=== PATIENT | male | born 1955 | race African-American/Black ===

== ENCOUNTER 2019-04-05 22:49 | Emergency (ER) | payer OTHER ==
[~2019-04-05] VITALS: Ht 188 cm; Wt 79.4 kg
[~2019-04-05 22:49] MED LIST: CYCLOBENZAPRINE10 MG ORAL; IBUPROFEN600 MG ORAL
[2019-04-05 23:30] VITALS: BP 141/72
--- NOTE | 2019-04-05 23:30 | NUR ---
ED Nurse Note: pt walked in c/o abscess on left buttock area with tenderness, pain, redness and pus with foul odor, pt states he has been having it for a while. will cont monitor.
--- NOTE | 2019-04-06 00:14 | Emergency Room Report ---
History of Present Illness General Chief Complaint: Skin Rash/Abscess Present Illness HPI Patient is a 63-year-old male brought in by EMS after increased self after increased skin rash to his buttock. Patient reports having onset of symptoms approximate 1 week ago. He had prior history of chronic wound to his lower buttock. He denies any fever. He had prior history of pituitary adenoma resection. He noticed to become increasingly swollen and painful. Allergies: Coded Allergies: Dairy (Verified Allergy, Mild, 03/01/15) Nursing Documentation-[facility] Hx Neurological Problems: Yes - 3 time brain surgery Physical Exam Vital Signs Date Time Temp Pulse Resp B/P (MAP) Pulse Ox O2 Delivery O2 Flow Rate FiO2 04/05/19 23:01 98.8 60 18 141/72 (95) 99 Room Air Sp02 EP Interpretation: reviewed, normal General Appearance: normal inspection, well appearing, no apparent distress, alert Head: atraumatic ENT: normal ENT inspection, hearing grossly normal, normal voice Neck: normal inspection, full range of motion, supple, no bony tend Respiratory: normal inspection, lungs clear, normal breath sounds, no respiratory distress, no retraction, no wheezing Cardiovascular #1: regular rate, rhythm, no edema Gastrointestinal: normal inspection, normal bowel sounds, non tender, soft, no guarding, no hernia Genitourinary: no CVA tenderness Musculoskeletal: normal inspection, back normal, normal range of motion Neurologic: alert, responsive, speech normal, normal inspection Psychiatric: normal inspection, judgement/insight normal, mood/affect normal Skin: other - induration to left buttock and erythema Medical Decision Making Diagnostic Impression: Primary Impression: Skin infection ER Course Patient present for skin rash. Differential diagnosis include was not limited to abscess, tumor, furuncle among others. Because of complexity of patient's case laboratory tests and imaging studies were ordered.Patient's laboratory testing showed a normal white blood count. CT imaging of the abdomen pelvis showed some evidence of colitis as well as lesion skin lesion. See radiology report for full details Patient was advised to follow-up with his primary care physician for further evaluation of colitis. He does not appear to have any current GI symptoms. Patient was also advised to follow-up as an outpatient with a general surgeon for further evaluation and treatment of the abscess. Does not appear to be significant soft tissue erythema at this time and patient will be given oral antibiotics. He was advised to return if worse.Patient was advised to have the wound rechecked in 2 days. He was advised to return to the emergency department if unable to see surgeon Labs Test 04/06/19 00:30 White Blood Count 8.4 K/UL (4.8-10.8) Red Blood Count 4.22 M/UL (4.70-6.10) Hemoglobin 12.4 G/DL (14.2-18.0) Hematocrit 37.6 % (42.0-52.0) Mean Corpuscular Volume 89 FL (80-99) Mean Corpuscular Hemoglobin 29.4 PG (27.0-31.0) Mean Corpuscular Hemoglobin Concent 32.9 G/DL (32.0-36.0) Red Cell Distribution Width 11.7 % (11.6-14.8) Platelet Count 290 K/UL (150-450) Mean Platelet Volume 5.6 FL (6.5-10.1) Neutrophils (%) (Auto) 55.6 % (45.0-75.0) Lymphocytes (%) (Auto) 34.0 % (20.0-45.0) Monocytes (%) (Auto) 7.4 % (1.0-10.0) Eosinophils (%) (Auto) 2.0 % (0.0-3.0) Basophils (%) (Auto) 0.9 % (0.0-2.0) Sodium Level 140 MMOL/L (136-145) Potassium Level 3.5 MMOL/L (3.5-5.1) Chloride Level 103 MMOL/L (98-107) Carbon Dioxide Level 32 MMOL/L (21-32) Anion Gap 5 mmol/L (5-15) Blood Urea Nitrogen 19 mg/dL (7-18) Creatinine 1.0 MG/DL (0.55-1.30) Estimat Glomerular Filtration Rate > 60 mL/min (>60) Glucose Level 108 MG/DL (74-106) Calcium Level 8.8 MG/DL (8.5-10.1) Total Bilirubin 0.5 MG/DL (0.2-1.0) Aspartate Amino Transf (AST/SGOT) 26 U/L (15-37) Alanine Aminotransferase (ALT/SGPT) 28 U/L (12-78) Alkaline Phosphatase 56 U/L (46-116) Total Protein 8.8 G/DL (6.4-8.2) Albumin 4.0 G/DL (3.4-5.0) Globulin 4.8 g/dL Albumin/Globulin Ratio 0.8 (1.0-2.7) Last Vital Signs Date Time Temp Pulse Resp B/P (MAP) Pulse Ox O2 Delivery O2 Flow Rate FiO2 04/05/19 23:01 98.8 60 18 141/72 (95) 99 Room Air Status: improved Disposition: HOME, SELF-CARE Condition: Stable Scripts Cephalexin* (KEFLEX*) 500 Mg Capsule 500 MG ORAL EVERY 6 HOURS, #28 CAP Prov: Jose Moseley MD 04/06/19 Trimethoprim/Sulfamethoxazole 160/800* (BACTRIM DS TABLET*) 1 Each Tablet 1 TAB ORAL Q12H, #14 TAB 0 Refills Prov: Jose Moseley MD 04/06/19 Referrals: NOT CHOSEN ANGLE/,REFERRING (PCP) Jose Moseley MD Apr 06, 2019 00:14
[2019-04-06] MEDS ORDERED: Piperacillin/Tazobactam 3.375 GM in NS 110 ML IVPB ONE (00:15)
[2019-04-06 00:55] LABS: BASOPHILS % (AUTO) 0.9 % (0.0-2.0); HEMATOCRIT 37.6 % (42.0-52.0); HEMOGLOBIN 12.4 G/DL (14.2-18.0); MEAN CORPUSCULAR VOLUME 89 FL (80-99); MONOCYTES % (AUTO) 7.4 % (1.0-10.0); NEUTROPHILS % (AUTO) 55.6 % (45.0-75.0); PLATELET COUNT 290 K/UL (150-450); RED BLOOD COUNT 4.22 M/UL (4.70-6.10); RED CELL DISTRIBUTION WIDTH 11.7 % (11.6-14.8); WHITE BLOOD COUNT 8.4 K/UL (4.8-10.8)
[2019-04-06 01:09] LABS: ANION GAP 5 mmol/L (5-15); BLOOD UREA NITROGEN 19 mg/dL (7-18); CALCIUM 8.8 MG/DL (8.5-10.1); CARBON DIOXIDE 32 MMOL/L (21-32); CHLORIDE 103 MMOL/L (98-107); POTASSIUM 3.5 MMOL/L (3.5-5.1); SODIUM 140 MMOL/L (136-145)
[2019-04-06 01:14] LABS: ALANINE AMINOTRANSFERASE 28 U/L (12-78); ALBUMIN/GLOBULIN RATIO 0.8 (1.0-2.7); ALKALINE PHOSPHATASE 56 U/L (46-116); ASPARTATE AMINO TRANSFERASE 26 U/L (15-37); BILIRUBIN,TOTAL 0.5 MG/DL (0.2-1.0)
--- NOTE | 2019-04-06 02:22 | NUR ---
ED Nurse Note: contacted lab regarding cancellation for wound culture and spoke with alo.
--- NOTE | 2019-04-06 04:00 | Diagnostic Imaging Report ---
Indication: Abscess on buttocks Technique: Spiral acquisitions obtained through the abdomen and pelvis. No oral contrast utilized, per emergency room physician request No IV contrast utilized, per referring physician request. Multiplanar reconstructions were generated. Total dose length product 1224 mGycm. CTDIvol(s) 18 mGy. Dose reduction achieved using automated exposure control Comparison: None Findings: Area of abnormal attenuation is seen just deep to the skin extending into the subcutaneous fat in the left buttock region this measures 2.3 cm transverse by 1.8 cm deep. This demonstrates fluid attenuation. There is thickening of the adjacent skin. The appendix is normal. No small bowel distention. No free or loculated intraperitoneal gas or fluid is evident. The distal esophagus, stomach, duodenum are unremarkable. Lack of IV contrast limits assessment of solid organs. The liver is grossly unremarkable. There is suggestion of. Equivocal cholelithiasis edema of the gallbladder wall. There is questionably a 2.5 x 1.2 cm gallstone in the gallbladder neck. No biliary ductal dilatation. The pancreas, spleen, adrenals, kidneys are unremarkable. No renal or ureteral calculi, hydronephrosis, or hydroureter demonstrated. The bladder is unremarkable. No pelvic mass or adenopathy. The included lung bases demonstrate numerous small cystic spaces in both lungs. The bones demonstrate minimal degenerative spondylosis changes Impression: Subcutaneous of the left buttock region demonstrate fluid attenuation. This could represent a small abscess or could represent a process such as a sebaceous cyst which may for not be infected. Appearance nonspecific particularly in the absence of IV contrast. Correlate with clinical findings. Sonography may be useful for better characterization Apparent gallbladder wall edema Cystic spaces in both lungs likely reflecting COPD changes, more extensive than on the previous exam This essentially agrees with the preliminary interpretation provided overnight by [facility] teleradiology service. The CT scanner at [facility] is accredited by the [employer] and the scans are performed using protocols designed to limit radiation exposure to as low as reasonably achievable to attain images of sufficient resolution adequate for diagnostic evaluation.
[2019-04-06] MEDS ORDERED: CEPHALEXIN500 MG ORAL (04:19)
[2019-04-06] MEDS ORDERED: BACTRIM DS TAB1 EAC1 ORAL (04:19)
[2019-04-06 04:30] VITALS: BP 128/83
--- NOTE | 2019-04-06 04:30 | NUR ---
ED Nurse Note: pt is cleared to be d/c per ERMD, pt discharge and aftercare instruction provided w/ prescription, pt education done via discussion and handout, pt advised to follow up with pcp or return to ed if changes in condition, pt verbalized understanding and agrees with plan, vss, ambulatory w/ steady gait, left w/ all belongings. iv d/c and id band removed.
== END 2019-04-06 04:30 | disposition home or self-care (01) ==
LOC: EMR 23:16
DX: L08.9 Local infection of the skin and subcutaneous tissue, unspecified (principal); Z91.011 Allergy to milk products; Z98.890 Other specified postprocedural states
CPT/HCPCS: 36415; 74176; 80053; 85025; 87070; 87205; 96365; 99284; J2543